=== PATIENT | female | born 1990 | race African-American/Black ===

== ENCOUNTER 2017-02-17 10:13 | Emergency (ER) | payer OTHER ==
[~2017-02-17] VITALS: Ht 157.5 cm; Wt 54.5 kg
[~2017-02-17 10:13] MED LIST: DSS100 PO; FERR-89 PO
[2017-02-17 11:43] LABS: EOSINOPHILS # (AUTO) 0.22 K/uL (0.00-0.70); EOSINOPHILS % (AUTO) 2.74 % (1.0-6.0); HEMATOCRIT 32.4 % (36-46); HEMOGLOBIN 9.9 g/dL (12.0-16.0); LYMPHOCYTES # (AUTO) 1.5 K/uL (1.0-4.8); LYMPHOCYTES % (AUTO) 18.3 % (22.0-44.0); MEAN CORPUSCULAR HEMOGLOBIN 26.3 pg (26.0-34.0); MEAN CORPUSCULAR HGB CONC 30.5 G/dL (31.0-37.0); MEAN CORPUSCULAR VOLUME 86 fL (80-100); MONOCYTES # (AUTO) 0.4 K/uL (0.1-1.0); MONOCYTES % (AUTO) 4.4 % (2.0-9.0); NEUTROPHILS % (AUTO) 74.6 % (40.0-70.0); PLATELET COUNT (AUTO) 200 K/uL (150-450); RED BLOOD CELL COUNT(AUTO) 3.76 MIL/uL (4.00-5.20); RED CELL DISTRIBUTION WIDTH 14.4 % (11.5-14.5); WHITE BLOOD COUNT (AUTO) 8.1 K/uL (4.5-11.0)
[2017-02-17 11:54] LABS: PROTHROMBIN TIME 10.8 SEC (9.4-11.6)
[2017-02-17 12:01] LABS: RBC MORPHOLOGY COMMENT NORMAL RBC MORPH
[2017-02-17 12:57] VITALS: BP 122/82
[2017-02-17 13:27] LABS: GLUCOSE, URINE (UA) NEGATIVE (NEGATIVE); KETONES,URINE NEGATIVE (NEGATIVE); LEUKOCYTE ESTERASE ,URINE NEGATIVE (NEGATIVE); OCCULT BLOOD,URINE MODERATE (NEGATIVE); PH,URINE 7.5 (5.0-8.0); PROTEIN,URINE NEGATIVE (NEGATIVE)
[2017-02-17 13:51] LABS: ADD UA MICROSCOPIC YES
[2017-02-17 13:52] LABS: APPEARANCE,URINE HAZY (CLEAR)
[2017-02-17 13:53] LABS: RBC,URINE 26-50 /HPF (0-2); SQUAMOUS EPITHELIAL CELL,UR Few /LPF (None Seen); WBC,URINE 0-2 /HPF (0-5)
== END 2017-02-17 14:45 | disposition home or self-care (01) ==
LOC: EMS 10:14
DX: D25.9 Leiomyoma of uterus, unspecified (principal); N92.0 Excessive and frequent menstruation with regular cycle; D64.9 Anemia, unspecified; Z91.018 Allergy to other foods
CPT/HCPCS: 76856; 99285

== ENCOUNTER 2017-06-01 19:10 | Emergency (ER) | payer OTHER ==
[~2017-06-01] VITALS: Ht 160 cm; Wt 59.1 kg
[2017-06-01] MEDS ORDERED: ALBU8HFA IH (19:29)
[2017-06-01] MEDS ORDERED: 0.9% SODIUM CHLORIDE 5 ML NEB SOLUTION NEB ONE (19:45)
[2017-06-01] MEDS: ALBUTEROL SULFATE 2.5 MG/0.5 ML NEB SOLUTION NEB ONE (19:51)
[2017-06-01] MEDS: IPRATROPIUM BROMIDE 0.5 MG/2.5 ML NEB SOLUTION NEB ONE (19:52)
[2017-06-01] MEDS: ALBUTEROL SULFATE HFA 90 MCG/PUFF 8 GM INHALER IH ONE (22:13)
[2017-06-01 22:39] VITALS: BP 117/77
== END 2017-06-01 22:43 | disposition home or self-care (01) ==
LOC: EMS 19:10
DX: J06.9 Acute upper respiratory infection, unspecified (principal); J45.909 Unspecified asthma, uncomplicated; Z91.018 Allergy to other foods
CPT/HCPCS: 71045; 94640; 99284; J7613; J3535

== ENCOUNTER 2020-12-10 14:17 | Inpatient (IN) | payer MEDICAID, OTHER ==
[~2020-12-10] VITALS: Ht 160 cm; Wt 49.4 kg
[~2020-12-10 14:17] MED LIST changes: +ALBU8HFA IH; -DSS100 PO
[2020-12-10] MEDS ORDERED: IBUPROFEN 600 MG TABLET PO ONE (15:15)
[2020-12-10 16:11] LABS: BASOPHILS % (AUTO) 1.2 % (0.0-2.0); EOSINOPHILS % (AUTO) 1.6 % (1.0-6.0); HEMATOCRIT 37.7 % (36-46); HEMOGLOBIN 11.9 g/dL (12.0-16.0); LYMPHOCYTES # (AUTO) 1.8 K/uL (1.0-4.8); LYMPHOCYTES % (AUTO) 27.5 % (22.0-44.0); MEAN CORPUSCULAR HEMOGLOBIN 27.5 pg (26.0-34.0); MEAN CORPUSCULAR HGB CONC 31.6 G/dL (31.0-37.0); MEAN CORPUSCULAR VOLUME 87 fL (80-100); MONOCYTES # (AUTO) 0.3 K/uL (0.1-1.0); MONOCYTES % (AUTO) 4.8 % (2.0-9.0); NEUTROPHILS # (AUTO) 4.3 K/uL (1.8-7.7); NEUTROPHILS % (AUTO) 64.9 % (40.0-70.0); PLATELET COUNT (AUTO) 286 K/uL (150-450); RED BLOOD CELL COUNT(AUTO) 4.33 MIL/uL (4.00-5.20); RED CELL DISTRIBUTION WIDTH 13.6 % (11.5-14.5)
[2020-12-10 16:23] LABS: ANION GAP 1 mmol/L (8-16); CALCIUM, TOTAL 8.8 mg/dL (8.8-10.5); CARBON DIOXIDE 29 mmol/L (22-29); CHLORIDE 107 mmol/L (98-107); CREATININE 0.68 mg/dL (0.60-1.30); GLOMERULAR FILTR. RATE CALC > 60 mL/min (>60); GLUCOSE,RANDOM 91 mg/dL (70-110); POTASSIUM 3.6 mmol/L (3.5-5.1); SODIUM SERUM 137 mmol/L (136-145); UREA NITROGEN, BLOOD 10 mg/dL (7-18)
[2020-12-10 16:25] LABS: AMPHET/METH SCREEN,URINE NEGATIVE (NEGATIVE); BARBITURATE SCREEN, URINE NEGATIVE (NEGATIVE); BENZODIAZEPINES SCREEN,URINE NEGATIVE (NEGATIVE); CANNABINOID SCREEN,URINE NEGATIVE (NEGATIVE); COCAINE SCREEN,URINE NEGATIVE (NEGATIVE); METHADONE SCREEN, URINE NEGATIVE (NEGATIVE); OPIATE SCREEN,URINE NEGATIVE (NEGATIVE)
[2020-12-10 16:34] LABS: ALANINE AMINOTRANSFERASE 7 U/L (12-78); ALBUMIN 3.4 g/dL (3.4-5.0); ALKALINE PHOSPHATASE 55 U/L (46-116); ASPARTATE AMINOTRANSFERASE 13 U/L (15-37); BILIRUBIN,TOTAL 0.9 mg/dL (0.1-1.0); HCG,QUANTITATIVE < 1 mIU/mL (0-6)
[2020-12-10 17:02] LABS: PHENCYCLIDINE SCREEN,URINE NEGATIVE (NEGATIVE)
[2020-12-10 17:03] LABS: COVID AG,FIA SOURCE NASOPHARYNGEAL
[2020-12-10] MEDS ORDERED: ACETAMINOPHEN 325 MG TABLET PO ONE (18:30)
[2020-12-10] MEDS ORDERED: HALOPERIDOL 5 MG TABLET PO PRN (18:30)
[2020-12-10] MEDS ORDERED: ZOLPIDEM TARTRATE 10 MG TABLET PO PRN (18:30)
[2020-12-10] MEDS ORDERED: LORazepam 2 MG TABLET PO PRN (18:30)
[2020-12-10 20:30] VITALS: BP 135/87
[2020-12-11 06:06] LABS: CHOL/HDL RATIO 3.1 (3.9-5.7)
[2020-12-11 06:09] LABS: APPEARANCE,URINE CLEAR (CLEAR); BILIRUBIN,URINE NEGATIVE (NEGATIVE); GLUCOSE, URINE (UA) NEGATIVE (NEGATIVE); KETONES,URINE NEGATIVE (NEGATIVE); LEUKOCYTE ESTERASE ,URINE NEGATIVE (NEGATIVE); NITRATE,URINE NEGATIVE (NEGATIVE); OCCULT BLOOD,URINE TRACE (NEGATIVE); PROTEIN,URINE NEGATIVE (NEGATIVE); UROBILINOGEN,URINE 0.2 mg/dL (<=1.0)
[2020-12-11 06:12] LABS: BACTERIA,URINE None Seen /HPF (None Seen); RBC,URINE 0-2 /HPF (0-2); SQUAMOUS EPITHELIAL CELL,UR Rare /LPF (None Seen); WBC,URINE None Seen /HPF (0-5)
[2020-12-11] MEDS: FERROUS SULFATE 325 MG EC TABLET PO SCH ×2 (06:31→17:28)
[2020-12-11 08:00] VITALS: BP 144/90
[2020-12-11] MEDS ORDERED: DOCUSATE SODIUM 100 MG CAPSULE PO PRN (09:45)
[2020-12-11] MEDS ORDERED: IBUPROFEN 400 MG TABLET PO PRN (09:45)
[2020-12-11] MEDS ORDERED: NICOTINE 14 MG/24 HOUR PATCH TD PRN (09:45)
[2020-12-11] MEDS ORDERED: ALBUTEROL SULFATE HFA 90 MCG/PUFF 8 GM INHALER IH PRN (09:45)
[2020-12-11] MEDS ORDERED: MAGNESIUM HYDROXIDE SUSPENSION 30 ML UDCUP PO PRN (09:45)
[2020-12-11] MEDS ORDERED: GuaiFENesin/D-METHORPHAN [SUGAR-FREE] 200-20MG/10 ML SYRUP UDCUP PO PRN (09:45)
[2020-12-11] MEDS ORDERED: CloNIDine HCL 0.1 MG TABLET PO PRN (09:45)
[2020-12-11] MEDS ORDERED: ACETAMINOPHEN 325 MG TABLET PO PRN (09:45)
[2020-12-11] MEDS ORDERED: MAG HYDROX/AL HYDROX/SIMETH ES 30 ML SUSPENSION UDCUP PO PRN (09:45)
[2020-12-11] MEDS ORDERED: PETROLATUM,WHITE 28 GM JELLY TP PRN (09:45)
[2020-12-11] MEDS ORDERED: LOPERAMIDE HCL 2 MG CAPSULE PO PRN (09:45)
[2020-12-11] MEDS ORDERED: ONDANSETRON HCL 4 MG TABLET PO PRN (09:45)
[2020-12-11] MEDS: SERTRALINE HCL 50 MG TABLET PO SCH (11:32)
[2020-12-11 16:00] VITALS: BP 121/86
[2020-12-11] MEDS ORDERED: FERROUS SULFATE 325 MG EC TABLET PO SCH (17:30)
[2020-12-12] MEDS: FERROUS SULFATE 325 MG EC TABLET PO SCH ×2 (06:50→16:33)
[2020-12-12 08:39] VITALS: BP 138/79
[2020-12-12] MEDS: SERTRALINE HCL 50 MG TABLET PO SCH (09:32)
[2020-12-12 16:00] VITALS: BP 126/76
[2020-12-13] MEDS: FERROUS SULFATE 325 MG EC TABLET PO SCH ×2 (06:33→16:25)
[2020-12-13] MEDS: SERTRALINE HCL 50 MG TABLET PO SCH (09:06)
[2020-12-13 09:22] VITALS: BP 104/59
[2020-12-14] MEDS: FERROUS SULFATE 325 MG EC TABLET PO SCH ×2 (06:59→17:31)
[2020-12-14 08:00] VITALS: BP 107/74
[2020-12-14] MEDS: SERTRALINE HCL 50 MG TABLET PO SCH ×2 (08:40→17:56)
[2020-12-14] MEDS ORDERED: SERTRALINE HCL 50 MG TABLET PO SCH (09:00)
[2020-12-14 16:07] VITALS: BP 121/77
[2020-12-15] MEDS: FERROUS SULFATE 325 MG EC TABLET PO SCH ×2 (06:38→17:02)
[2020-12-15] MEDS: SERTRALINE HCL 50 MG TABLET PO SCH ×2 (09:00→17:02)
[2020-12-15 09:45] VITALS: BP 139/84
[2020-12-15 16:12] VITALS: BP 139/97
[2020-12-16] MEDS: FERROUS SULFATE 325 MG EC TABLET PO SCH (06:33)
[2020-12-16] MEDS: SERTRALINE HCL 50 MG TABLET PO SCH (08:37)
[2020-12-16 08:58] VITALS: BP 128/80
[2020-12-16] MEDS ORDERED: SERT-158 PO (11:06)
== END 2020-12-16 13:20 | disposition home or self-care (01) | DRG 751 ==
LOC: EMS 14:20 → 3EI 18:35
PROVIDERS: ADMIT Psychiatry & Neurology Child & Adolescent Psychiatry; ATTEND Psychiatry & Neurology Child & Adolescent Psychiatry
DX: F33.2 Major depressive disorder, recurrent severe without psychotic features (principal); F70 Mild intellectual disabilities; R45.851 Suicidal ideations; F41.9 Anxiety disorder, unspecified; F84.5 Asperger's syndrome; J45.909 Unspecified asthma, uncomplicated; N94.6 Dysmenorrhea, unspecified; Z20.822 Contact with and (suspected) exposure to COVID-19; D64.9 Anemia, unspecified; R03.0 Elevated blood-pressure reading, without diagnosis of hypertension; Z59.0 Homelessness; Z79.899 Other long term (current) drug therapy; Z91.018 Allergy to other foods
CPT/HCPCS: 80053; 80061; 81001; 81003; 84702; 85025; 99285; G0480